=== PATIENT | male | born 1930 | race Caucasian/White ===

== ENCOUNTER 2017-10-28 07:09 | Day surgery (SDC) | payer OTHER, BC ==
--- NOTE | 2017-10-25 16:10 | CPEKG ---
Heart Rate: 58 RR Interval: 1034 P-R Interval: 204 QRSD Interval: 96 QT Interval: 408 QTC Interval: 401 P [place]: 49 QRS [place]: 7 T Wave [place]: 55 EKG Severity - NORMAL ECG - EKG Impression: SINUS RHYTHM Electronically Signed By: Harrison Manriquez 26-Oct-2017 07:43:47
[2017-10-28] MEDS ORDERED: ceFAZolin 2 GM/SWFI 2 GM/20 ML SYR IVP ONE (07:24)
[2017-10-28] MEDS ORDERED: ACETAMINOPHEN 500 MG TAB PO ONE (07:24)
[2017-10-28] MEDS ORDERED: LR 1,000 ML IV ONE (07:25)
[2017-10-28] MEDS ORDERED: ceFAZolin 2 GM/DEXTROSE 100 ML IV ONE (07:30)
[2017-10-28] MEDS ORDERED: LIDOCAINE 1% 300 MG/30 ML SDV ONE ×2 (07:44→09:17)
[2017-10-28] MEDS ORDERED: BUPIVACAINE 0.25% 30 ML SDV ONE (07:44)
[2017-10-28] MEDS ORDERED: GENTAMICIN SULFATE 80 MG/2 ML VIAL ONE ×2 (07:45→09:18)
[2017-10-28] MEDS ORDERED: SURGIFLO MATRIX KIT WITH THROMBIN 8 ML TP ONE (07:45)
[2017-10-28] MEDS ORDERED: THROMBIN (BOVINE) 5,000 UNIT VIAL TP ONE ×2 (07:45→09:17)
[2017-10-28] MEDS ORDERED: CHLORHEXIDINE GLUC HIBICLENS 118 ML BTL TP ONE (07:45)
[2017-10-28 07:59] LABS: PLATELET COUNT 260 10^3/uL (150-400)
[2017-10-28 08:11] LABS: INR 0.93 (0.83-1.16); PROTIME(PATIENT) 12.7 SEC (12.0-15.0)
--- NOTE | 2017-10-28 08:11 | PDHPUP ---
History & Physical Update H&P update statement: This history and physical update is based on an assessment of the patient which was completed after admission or registration (within 24 hours), but prior to the surgery/procedure. H&P update: H&P reviewed & patient examined, no change in patient's condition since H&P completed
[2017-10-28] MEDS ORDERED: fentaNYL 100 MCG/2 ML INJ IVP PRN ×2 (09:17→10:49)
[2017-10-28] MEDS ORDERED: NALOXONE HCL 0.4 MG/ML INJ IVP PRN ×2 (09:17→10:49)
[2017-10-28] MEDS ORDERED: HYDROmorphONE/DILAUDID 2 MG/ML INJ IVP PRN (09:17)
[2017-10-28] MEDS ORDERED: oxyCODONE IR 5 MG TAB PO PRN (09:17)
[2017-10-28] MEDS ORDERED: ONDANSETRON 4 MG/2 ML VIAL IVP PRN ×2 (09:17→10:49)
[2017-10-28] MEDS ORDERED: BUPIVACAINE 0.5% 30 ML SDV ONE (09:18)
--- NOTE | 2017-10-28 09:33 | PDANEPAE ---
ANE History of Present Illness Percutaneous spinal cord stimulator place ANE Past Medical History - Cardiovascular History Hx Hypertension: No Hx Arrhythmias: No Hx Chest Pain: No Hx Coronary Artery / Peripheral Vascular Disease: No Hx CHF / Valvular Disease: No Hx Palpitations: No - Pulmonary History Hx COPD: No Hx Asthma/Reactive Airway Disease: No Hx Recent Upper Respiratory Infection: No Hx Oxygen in Use at Home: No Hx Sleep Apnea: No Sleep Apnea Screening Result - Last Documented: Negative Pulmonary History Comment: quit smoking 50 yrs ago - Neurologic History Hx Cerebrovascular Accident: No Hx Seizures: No Hx Dementia: No Neurologic History Comment: peripheral neuropathy-. low back pain radiates down right leg,R buttock, R thigh R foot w/numbness/cramping R ft. 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 BPH - Liver History Hx Hepatic Disorders: No - Neurological & Psychiatric Hx Hx Neurological and Psychiatric Disorders: No Neurological / Psychiatric History Comment: see above - Cancer History Hx Cancer: Yes Cancer History Comment: skin CA lip,. right leg,. carcinoid tumor intestine 2010 - Congenital Disorder History Hx Congenital Disorders: No - GI History Hx Gastrointestinal Disorders: Yes Gastrointestinal History Comment: CONSTIPATION RELATED TO TAKING PAIN RX. partial colectomy ' - Other Health History Other Health History: LUPUS/SJOGRENS. osteoarthritis R shoulder,R wrist; upper and lower partials in mouth;easy bruising; - Chronic Pain History Chronic Pain: Yes (RT LOWER BACK WITH RADIATION INTO LEGS AND FEET) - Surgical History Prior Surgeries: STAGE 1 SPINAL CORD STIMULATOR 10/12/17. left total knee appro ,. lumbar arreguin x2,. MARISA shoulder SCOPE. partial colectomy ',. hand surg ',. cervical fusion ' ANE Review of Systems Review of systems is: negative Review of Systems: - Exercise capacity METS (RN): 1 METS ANE Patient History - Allergies Allergies/Adverse Reactions: No Allergies [NKA] Allergy (Verified 04/11/13 12:04) [place]ER[place] SAP Allergy (Mild, Uncoded 02/16/11 11:36) Rash - Home Medications Home medications: home medication list seen and reviewed Home Medications: Cevimeline HCl TID 10/25/17 [Last Taken 10/27/17] Gabapentin TID 10/25/17 [Last Taken 10/27/17] Herbals/Supplements -Info Only DAILY 10/25/17 [Last Taken 10/26/17] Hydrocodone-Acetamin 5-325 mg TID 10/25/17 [Last Taken 10/24/17] Restasis Opht Drops(*) HS 10/25/17 [Last Taken 10/26/17] Tamsulosin HCl HS 10/25/17 [Last Taken 10/27/17] Tylenol ES 500 mg (*) PRN 10/25/17 [Last Taken 10/27/17] - NPO status NPO Status: no food or drink >8 hours NPO Since - Liquids (Date): 10/27/17 NPO Since - Liquids (Time): 22:30 NPO Since - Solids (Date): 10/27/17 NPO Since - Solids (Time): 21:00 - Anes Hx Anes Hx: no prior problems - Smoking Hx Smoking Status: Former smoker - Alcohol Use Alcohol Use: None - Family Anes Hx Family Anes Hx: none ANE Labs/Vital Signs - Labs Result Diagrams: 10/28/17 07:50 10/28/17 07:50 - Vital Signs Blood Pressure: 139/82 Heart Rate: 62 Respiratory Rate: 14 O2 Sat (%): 93 Height: 177.8 cm Weight: 68.039 kg ANE Physical Exam - Airway Neck exam: decreased ROM Mouth exam: poor dentition - Pulmonary Pulmonary: no respiratory distress, no rales or rhonchi - Cardiovascular Cardiovascular: regular rate and rhythym, no murmur, rub, or gallop ANE Anesthesia Plan Anesthesia Plan: MAC Total IV Anesthesia: Yes
[2017-10-28] MEDS ORDERED: fentaNYL 100 MCG/2 ML INJ ONE ×2 (09:48→10:29)
[2017-10-28] MEDS ORDERED: PROPOFOL 200 MG/20 ML VIAL ONE (10:08)
[2017-10-28] MEDS ORDERED: LIDOCAINE 2% 5 ML SDV ONE (10:27)
[2017-10-28] MEDS ORDERED: ACETAMINOPHEN 500 MG TAB PO PRN (10:49)
--- NOTE | 2017-10-28 11:41 | GOP ---
[f rep st] OPERATIVE REPORT DATE OF OPERATION: SURGEON: Betsy Bernardo DO NEUROSURGEON: Betsy Bernardo DO. FLAT CLOTHIER: KASSI Saenz. PREOPERATIVE DIAGNOSIS: 1. Chronic pain syndrome. 2. Failed back syndrome. POSTOPERATIVE DIAGNOSIS: 1. Chronic pain syndrome. 2. Failed back syndrome. PROCEDURE PERFORMED: 1. Placement of spinal cord stimulator Medtronic Intellis generator to right hip and anchoring of pe rcutaneous leads placed by Dr. Snider. 2. Impedances. FINDINGS: SPECIMENS: None. ESTIMATED BLOOD LOSS: 10 mL. INDICATIONS: This is an 87-year-old male who has undergone a previous percutaneous spinal cord stimu lator trial with excellent success, and elected to move forward with placement. He was identified. He had previously marked his belt line. He was brought to the operating room, anesthetized under loc al with MAC. Dr. Snider placed percutaneous Medtronic leads, and I then anesthetized an incision sit e around the Touhy needles and at the left hip. Incision was made with a 10 blade around the Touhy n eedles, and a pocket was created with Metzenbaum scissors. We then retracted the Touhy needle, took an x-ray. We had not migrated, removed the stylets and the Touhy needles, took another x-ray. We bryant d not migrated. Anchored the leads with Injex bumpy anchors x2 and 2 silk stitches at each anchor. We then made an incision at the hip with a 10 blade and created a subcutaneous pocket with blunt diss ection. Meticulous hemostasis had been obtained with bipolar cautery. We tunneled from the pocket t o the lumbar incision, brought the leads down and out, leaving a strain relief loop in the lumbar poc ket. We then placed the leads into the generator in the appropriate configuration, checked impedance s. All impedances were good, locked them down with a torque wrench. Coiled the wires posterior to t he generator, and sutured it to the fascia with 2-0 silk stitch at 2 positions, copiously irrigated e ach incision with over a liter of gentamicin-infused saline. Closed the subcutaneous layer of each i ncision with 2-0 Vicryl pop-offs, cutaneous layer of 0 Vicryl pop-offs. The skin was closed with 4-0 running Monocryl and Steri-Strips at each incision. The wounds were dressed with Xeroform gauze and a Tegaderm. Patient tolerated the procedure well, no complications. DESCRIPTION OF PROCEDURE: FLUIDS: As per anesthesia record. URINE OUTPUT: None. DRAINS: None. COMPLICATIONS: None. /[id number]/MODL
[2017-10-28] MEDS ORDERED: ONDANSETRON DISINTEGRATING 4 MG TAB PO PRN (11:57)
[2017-10-28] MEDS ORDERED: HYDROCODONE/APAP 5/325 TAB PO PRN (11:57)
--- NOTE | 2017-10-28 12:01 | POSTOPPROG ---
Post Op Note Date of Operation: 10/28/17 Surgeon: Cheyenne Snider Health Promotion Manager: Dr. Betsy Bernardo Anesthesia: IV Sedation, Local (Specify) Pre-op Diagnosis: Chronic Pain Post-op Diagnosis: Chronic pain Procedure: Implant of percutaneous spinal cord stimulator leads and generator Inf/Abcess present in the surg proc area at time of surgery?: No Depth: Superfical (Skin SQ) EBL: Minimal Plan Plan: 87 yo male sp implant of percutaneous SCS leads and generator to left hip - neuro checks - pain control - advance diet as tolerated - dc home today Exam Awake. Alert PERRL EOMI Following commands Strength full at 5/5
[2017-10-28 13:14] VITALS: BP 160/86
--- NOTE | 2017-10-28 13:33 | POSTANESTH ---
Post Anesthetic Evaluation Cardiovascular Status: Normal, Stable Respiratory Status: Normal, Stable Level of Consciousness/Mental Status: Can Participate in Eval Pain Control: Adequate, Prn Tx Ordered Nausea/Vomiting Control: Adequate, Prn Tx Ordered Complications Possibly Related to Anesthesia: None Noted (Pt. very thankful.)
--- NOTE | 2017-10-29 09:10 | GPN ---
[f rep st] PROCEDURE NOTE DATE OF PROCEDURE: 10/28/2017 PROCEDURE: Fluoroscopically-guided bilateral 8-contact spinal cord stimulator lead placement stage 2 . PRE-PROCEDURE DIAGNOSES: 1. Chronic pain syndrome. 2. Right lumbar radiculopathy. 3. Failed back syndrome. POSTPROCEDURE DIAGNOSES: 1. Chronic pain syndrome. 2. Right lumbar radiculopathy. 3. Failed back syndrome. PROCEDURE PERFORMED: Spinal cord stimulator implants. Procedure performed by Dr. Snider. Anchoring and permanent implantation of generator device by Dr. Betsy Bernardo dictated separately. INDICATIONS: The patient is a very pleasant 87-year-old gentleman who has had long-standing pain in his back with radiation to his right lower extremity. He underwent a spinal cord stimulator trial on 10/12/2017. That provided him with greater than 50% reduction of his pain during the trial. He was able to walk for longer periods of time and was, in general, much more comfortable. His pain was re duced from 8/10 down to a 3/10. Based on his success with the spinal cord stimulator trial, he is he re today to undergo permanent implantation, stage 2. PROCEDURE: The patient was placed in the prone position. His back was prepped and draped in the usu al sterile fashion. The skin was localized over the L1-2 interspace with lidocaine 1% 3 cc. A 14-ga uge curve-tipped Tuohy needle was then advanced down to the epidural space. Positive loss of resista nce was obtained. No CSF was aspirated. No heme was aspirated. An 8-contact spinal cord stimulator lead was then advanced through the Tuohy needle into the epidural space. Under direct continuous fl uoroscopic evaluation, the lead was advanced in a cephalad direction to traverse the T9 and T10 verte bral bodies, and at the superior aspect of the lead was at the inferior aspect of T8. The skin was t hen localized adjacent to the original Tuohy needle, and a second 14-gauge Tuohy needle was advanced to the epidural space. Again, positive loss of resistance was obtained. No CSF was aspirated, and n o heme was aspirated. A second 8-contact spinal cord stimulator lead was advanced just to the right of the initial lead. Again, under direct fluoroscopic guidance, this was advanced in a cephalad dire ction, again spanning the T8 through T10 vertebral bodies. With the patient in an awake state, testi ng commenced. The patient reported stimulation in his lower back, buttocks, and into his right lower extremity, which covered the entire aspect of his usual pain pattern. The remainder of the procedur e, which included securing and anchoring the spinal cord stimulator leads, tunneling and placement of the generator was performed by Dr. Betsy Bernardo. There were no complications. The patient tolerated the procedure well. /[id number]/MODL
== END 2017-10-28 12:56 | disposition home or self-care (01) ==
LOC: FSGY 07:09
PROVIDERS: ATTEND Neurological Surgery
PROC: 00HU3MZ Insertion of Neurostimulator Lead into Spinal Canal, Percutaneous Approach (ICD-10-PCS; principal; 2017-10-28 09:00)
PROC: 0JH80MZ Insertion of Stimulator Generator into Abdomen Subcutaneous Tissue and Fascia, Open Approach (ICD-10-PCS; 2017-10-28 09:00)
DX: G89.4 Chronic pain syndrome (principal); M54.16 Radiculopathy, lumbar region
CPT/HCPCS: C1778; C1787; C1820; J0690; J1580; J2704; J3010

== ENCOUNTER → 2017-11-29 | Outpatient (CLI) | payer OTHER, BC | LOC: FIMAGING 19:28 | PROVIDERS: ATTEND Physician Assistant | DX: M51.16 Intervertebral disc disorders with radiculopathy, lumbar region (principal); M51.37 Other intervertebral disc degeneration, lumbosacral region; M48.061 Spinal stenosis, lumbar region without neurogenic claudication; M48.07 Spinal stenosis, lumbosacral region ==